=== PATIENT | female | born 1985 | race Caucasian/White ===

== ENCOUNTER 2017-08-08 08:39 | Outpatient (CLI) | payer OTHER ==
[~2017-08-08 08:39] MED LIST: LEVSIN/SL0.125 MG SL; PEPCID40 MG PO
== END 2017-08-08 09:00 | disposition home or self-care (01) ==
LOC: NUCLEAR 08:39
DX: R10.11 Right upper quadrant pain (principal)
CPT/HCPCS: 78227; A9537; J2805

== ENCOUNTER 2018-08-01 10:41 | Inpatient (IN) | payer OTHER ==
[~2018-08-01] VITALS: Ht 154.9 cm; Wt 68.0 kg
[2018-08-22] MEDS ORDERED: IBUPROFEN600 MG PO (16:26)
[2018-08-22] MEDS ORDERED: OXYC1TAB9 PO (16:26)
[2018-08-22] MEDS ORDERED: CARAFATE1 GM PO (16:27)
[2018-08-22] MEDS ORDERED: GAS RELIEF125 MG PO (16:27)
== END 2018-08-23 16:48 | disposition home or self-care (01) | DRG 328 ==
LOC: O/R 08-21 05:59 → RECOVERY 08-21 07:00 → SURH 08-21 16:12
PROVIDERS: ADMIT Surgery
PROC: 0DV44ZZ Restriction of Esophagogastric Junction, Percutaneous Endoscopic Approach (ICD-10-PCS; 2018-08-21)
PROC: 0WQF4ZZ Repair Abdominal Wall, Percutaneous Endoscopic Approach (ICD-10-PCS; 2018-08-21)
PROC: 0DJ08ZZ Inspection of Upper Intestinal Tract, Via Natural or Artificial Opening Endoscopic (ICD-10-PCS; 2018-08-21)
PROC: 0BUT4JZ Supplement Diaphragm with Synthetic Substitute, Percutaneous Endoscopic Approach (ICD-10-PCS; principal; 2018-08-21 07:00)
PROC: 0DS64ZZ Reposition Stomach, Percutaneous Endoscopic Approach (ICD-10-PCS; 2018-08-21 07:00)
DX: K21.0 Gastro-esophageal reflux disease with esophagitis (principal); K31.89 Other diseases of stomach and duodenum; K44.9 Diaphragmatic hernia without obstruction or gangrene; K42.9 Umbilical hernia without obstruction or gangrene